=== PATIENT | female | born 1980 | race Caucasian/White ===

== ENCOUNTER 2025-01-24 10:43 | Day surgery (SDC) | payer BC, SELFPAY ==
[2025-01-24 11:28] VITALS: BP 122/86; PULSE 92; RESP 20; TEMP 36.7; O2SAT 100
[2025-01-24] MEDS: Lactated Ringers 1,000 ML 80 ML IV (11:35)
--- NOTE | 2025-01-24 11:55 | W.ANESPRE ---
General Info Date of Service Date Performed: 01/24/25 Height: 5 ft 3 in Weight: 61.8 kg Body Mass Index (BMI): 24.1 Surgical Procedure: Operation Date: 01/24/25 12:35 Proposed Procedure Side Surgeon p Otis Adam MD Meds Allergies and Home Medications Allergies Allergy/AdvReac Type Severity Reaction Status Date / Time No Known Allergies Allergy Verified 01/24/25 11:26 Home Medication ?Medication ?Instructions ?Recorded Saccharomyces boulardii 250 mg 250 mg PO BID 01/09/25 capsule (Daily Probiotic (S. boulardii)) ascorbic acid (vitamin C) 1,000 mg 1,000 mg PO DAILY 01/09/25 capsule cholecalciferol (vitamin D3) 125 125 mcg PO DAILY 01/09/25 mcg (5,000 unit) capsule [id number]-[id number]-xenxu extract 5 1 cap PO DAILY 01/09/25 mg-6 mg-150 mg capsule (Fruit and Vegetable Daily) omega-3 fatty acids 1,000 mg 1,000 mg PO DAILY 01/09/25 capsule Current Visit Medications: Current Medications Generic Name Dose Route Start Last Admin Trade Name Freq PRN Reason Stop Dose Admin Ringer's Solution 1,000 mls @ 80 mls/hr 01/24/25 06:00 01/24/25 11:35 IV 01/24/25 23:59 80 mls/hr INFUSION JASPAL Administration Sodium Chloride 0 ml 01/24/25 06:00 Normal Saline Flush 10 Ml Syr IV 01/24/25 23:59 PRN PRN Sodium Chloride 0 ml 01/24/25 06:00 Normal Saline 10 Ml Vial IJ 01/24/25 23:59 DIRECTED PRN Sterile Water 0 ml 01/24/25 06:00 Water,Injection,Sterile 10 Ml Vial IJ 01/24/25 23:59 DIRECTED PRN PFSH Active Problems Active Problems: Problem Status Onset Code Positive colorectal cancer screening using Cologuard test Acute R19.5 Surgical History Surgical History Hx of wisdom tooth extraction Tobacco Smoking/Tobacco Use Status: Former Tobacco Use Passive smoking exposure: No Alcohol Alcohol Intake: current Alcohol intake frequency: holidays/special occasions only Substance Use Substance use: Never Substance use type: does not use Details: alcohol:t-7 Vital Signs and Lab Results Vital Signs Most Recent Vital Signs in EMR: Most Recent Vital Signs Temp Pulse Resp BP Pulse Ox 36.7 C 92 H 20 122/86 100 01/24/25 11:28 01/24/25 11:28 01/24/25 11:28 01/24/25 11:28 01/24/25 11:28 Anesthesia Assessment and Plan Anesthesia History Personal History: No History of Anesthesia Complications Family History: No Family History of Anesthesia Complications Exercise Tolerance Exercise Tolerance: Metabolic Equivalents>4 Pertinent Negatives Pertinent Negatives: No Symptoms of GERD Cardiac & Pulmonary Exam Cardiac Exam: Normal S1/S2 Heart Sounds Pulmonary Exam: Clear Bilateral Breath Sounds Implantable Cardiac Device Does patient have a Pacemaker or an ICD?: No Airway Exam Known Difficult Airway: No Mallampati Class: 1 Mouth Opening: Normal (> 3cm) Thyromental Distance: Greater than 3 cm Neck Range of Motion: Full ROM Neck Circumference: Normal Teeth Condition: Normal Dentition ASA Classification ASA Score: ASA 2 Emergency Case?: No NPO Status NPO Status: NPO Clears >2 hours, Solids >8 hours Status Status: Negative HCG Anesthesia Plan Resuscitation Status: Full Code Anesthesia Technique: General Anesthesia Airway Planned: Natural Airway Monitors Used: Standard Monitors
[2025-01-24 11:56] VITALS: BMI 24.1
--- NOTE | 2025-01-24 12:17 | W.PM.DSUDISC ---
Date of service: 01/24/25 Discharge Plan Disposition Patient Disposition: Home Condition: Good Discharge Details Reason For Visit: Positive cologuard Attending Provider: Tona Adam Primary Care Provider: Shahal Can Recommendations for Follow Up Recommended tests to be ordered by follow up provider: Follow up pathology Home Meds and New Rx's Prescriptions: Continued omega-3 fatty acids 1,000 mg capsule 1,000 mg PO DAILY cholecalciferol (vitamin D3) 125 mcg (5,000 unit) capsule 125 mcg PO DAILY Saccharomyces boulardii [Daily Probiotic (S. boulardii)] 250 mg capsule 250 mg PO BID Fruit and Vegetable Daily 5-6-150 mg capsule 1 cap PO DAILY ascorbic acid (vitamin C) 1,000 mg capsule 1,000 mg PO DAILY Discharge Instructions Instructions: Colon polyps Additional Instructions: Your colonoscopy went well today. You did have three small polyps which were removed today and will be sent to pathology. We will contact you once the pathology returns and provide recommendations for when to have another colonoscopy. Please contact the surgery office if you have any questions or concerns. 1. If tolerated, consume a soft, low fiber diet for 1-2 days. 2[address] Do not drive, drink alcohol, operate machinery, make critical decisions, or do activities that require coordination or balance for 24 hours. 3. Because air was put into your colon during the procedure, expelling air from your rectum (passing gas or farting) is normal. 4. You may not have a bowel movement for 1-3 days because of the colonoscopy prep. This is normal. 5. Go directly to the emergency room if you notice any of the following: Develop chills (warm to touch), or if you have a thermometer and your temperature is above 101 Difficulty breathing or difficultly swallowing Persistent vomiting Severe abdominal pain, other than gas cramps Severe chest pain Black, tarry stools Any bleeding ? exceeding one tablespoon 6. Call your physician if the site where your intravenous was started becomes red, swollen, painful, and warm to touch. 7. Your physician has reviewed your pre-procedure medications. Please continue to take those medications as previously ordered. You will be given specific information/education regarding any changes to your medications before leaving. Stand Alone Forms: Portal Information Activity:: Activity as Tolerated Diet:: As Tolerated Discharge Orders Discharge Orders: Discharge Order (Routine); Ordered 01/24/25 Ordered By: Tona Adam
--- NOTE | 2025-01-24 13:00 | BOWEL_PTH ---
PATIENT: Jannette Wetzel LOC: [facility] U#:[id number] AGE/SX: 44/F ROOM: RE01/24/[address]: Tona Adam : 1980 BED: DIS: 01/24/2025 SPEC #: [id number] RECD: 01/24/25 18:26 STATUS: BIANCA RENegin #: [id number] BHAKTI: 01/24/25 13:[address]: Tona Adam DEPT: Surgical Specimen RECD BY: Tosha Ivan ENTERED: 01/24/25 18:28 SP TYPE: Bowel OTHR DR: Shahla Can Tissues: 1 - BIOPSY BOWEL 2 - BIOPSY BOWEL 3 - BIOPSY BOWEL Procedures: GROSS AND MICRO LEVEL 4 Comments: [id number]
[2025-01-24 13:15] VITALS: BP 101/57; PULSE 83; RESP 17; TEMP 36.5; O2SAT 100
--- NOTE | 2025-01-24 13:22 | COLE_ITS ---
Date of service: 01/24/25 Time of Service: 13:22 Colonoscopy Report Date of procedure: 01/24/25 Pre-op diagnosis general: Positive cologuard Post-op diagnosis procedure note: other (Colon polyps ) Procedure: Colonoscopy with polypectomy Surgeon: Tona Adam Anesthesia Type: General:No Airway Estimated blood loss (mL): 1 Pathology: other (Colon polyp at 50cm, 35cm and rectal polyp ) Complications: None Disposition: PACU Indications: Patient is a 44 yo female who had a positive cologuard and presented for a follow up colonoscopy. She denies any changes in bowel habits. Prep: Miralax/Dulcolax Procedure Start Time: 12:38 Procedure End Time: 13:09 Retraction Time: 22 Findings: Small polyps identified at 50cm, 35cm and rectal. Polyps removed with cold forceps and sent to pathology. Procedure Description: The patient was brought to the endoscopy suite and placed in the left lateral decubitus position. After induction of IV sedation, a digital rectal exam was performed. Digital exam was normal. The colonoscope was then passed to the cecum without difficulty. Cecal intubation was confirmed by the identification of the appendiceal orifice and the ileocecal valve. Upon withdrawing the colonoscope, all mucosal surfaces were inspected. The prep was noted to be adequate. At 50cm, 35cm, and in the rectum there were small polyps, which was removed using cold forceps in its entirety. Specimens were retrieved for pathological analysis. There was no other evidence of mucosal abnormality, polyp or cancer. The rectum was unremarkable. The patient tolerated the procedure well with no complications. Postoperatively, the patient was transferred to the recovery room in stable condition. Tyndall Bowel Prep Tyndall Bowel Prep Right Colon: 3 Left Colon: 3 Transverse Colon: 3 Total Score: 9
--- NOTE | 2025-01-24 13:45 | W.ANESPOSTOP ---
Postoperative Evaluation Date, Time and Location Date Performed: 01/24/25 Time Performed: 13:45 Patient Location: Day Surgery Unit Vital Signs Most Recent Imported Vital Signs: Most Recent Vital Signs Temp Pulse Resp BP Pulse Ox 36.5 C 83 17 101/57 L 100 01/24/25 13:15 01/24/25 13:15 01/24/25 13:15 01/24/25 13:15 01/24/25 13:15 Pain Score Most Recent Pain Score: Most Recent Pain Score Pain Level 0 01/24/25 13:15 Assessment Mental Status: Awake (Alert & Oriented to Patient Baseline) Airway and Respiratory Function: Patent airway with normal (patient baseline) respiratory exam Cardiovascular Function: Hemodynamically Stable Hydration Status: Adequately Hydrated Nausea & Vomiting: No Nausea or Vomiting Pain: Pt. Denies Any Pain Peripheral Nerve Block: Patient did not receive a nerve block
[2025-01-24 13:46] VITALS: BP 112/71; PULSE 73; RESP 16; TEMP 36.2; O2SAT 98
== END 2025-01-24 14:04 | disposition home or self-care (01) ==
PROVIDERS: PCP Internal Medicine; Visit Provider Student in an Organized Health Care Education/Training Program
PROC: 0DJD8ZZ Inspection of Lower Intestinal Tract, Via Natural or Artificial Opening Endoscopic (ICD-10-PCS; CPT 45378; principal; 2025-01-24 12:30)
DX: Z12.11 Encounter for screening for malignant neoplasm of colon (principal); D12.5 Benign neoplasm of sigmoid colon; K62.1 Rectal polyp
CPT/HCPCS: 45380; 81025; 88305; J2704